=== PATIENT | female | born 1980 | race Two or more races ===

== ENCOUNTER 2025-02-28 22:32 | Emergency (ER) | payer MEDICAID, SELFPAY ==
[2025-02-28 22:34] VITALS: BMI 39.6
[2025-02-28 23:09] VITALS: BP 144/92; PULSE 102; RESP 20; TEMP 36.4; O2SAT 96
--- NOTE | 2025-02-28 23:19 | PD.EDRME ---
Rapid Medical Screening Exam RME Arrival date/time: 02/28/25 22:32 Chief Complaint: Abdominal Pain Time Seen by Provider: 02/28/25 22:35 Vital signs: Vital Signs Temperature 97.5 F 02/28/25 23:09 Pulse Rate 102 H 02/28/25 23:09 Respiratory Rate 20 02/28/25 23:09 Blood Pressure 144/92 H 02/28/25 23:09 Pulse Oximetry (%) 96 02/28/25 23:09 Oxygen Delivery Method Room Air 02/28/25 23:09 E Narrative: Epigastric/RUQ pain, nausea and vomiting since Sunday. Went to outside ED on Sunday, diagnosed with gallstones. Pain has not improved with T3
[2025-02-28 23:30] LABS: Basophils # (Auto) 0.1 Thou/mm3 (0.0-0.2); Basophils % (Auto) 1 % (0-2.5); Eosinophils # (Auto) 0.1 Thou/mm3 (0.0-0.5); Eosinophils % (Auto) 1 % (0-10); Hemoglobin 13.5 g/dL (12.0-16.0); Immature Granulocytes % (Auto) 0 % (0-0); Immature Granulocytes Auto 0.03 Thou/mm3 (0.00-0.00); Lymphocytes # (Auto) 2.7 Thou/mm3 (1.0-4.8); Lymphocytes % (Auto) 24 % (10-50); Mean Corpuscular HGB Conc 32.9 g/dl (31.0-37.0); Mean Corpuscular Hemoglobin 27.4 pg (25.0-35.0); Mean Corpuscular Volume 83 fL (80-100); Monocytes # (Auto) 0.7 Thou/mm3 (0.0-0.8); Monocytes % (Auto) 7 % (0-12); Neutrophils # (Auto) 7.4 Thou/mm3 (1.8-7.7); Neutrophils % (Auto) 67 % (37-80); Nucleated Red Blood Cell % 0 /100 WBC (0); Platelet Count 339 Thou/mm3 (140-440); RDW Standard Deviation 46.1 fL (36.4-46.3); Red Blood Count 4.92 Miln/mm3 (4.00-5.20)
[2025-02-28] MEDS: HYDROcodone/APAP 5/325 TABLET 1 TAB PO (23:35)
[2025-02-28] MEDS: ONDANSETRON ODT 4 MG TABRAP PO (23:35)
[2025-02-28] MEDS: KETOROLAC INJ 60 MG/2 ML VIAL 30 MG IM (23:36)
[2025-02-28 23:42] LABS: Collection Type, Urine Clean Catch
[2025-03-01] VITALS (15 sets, daily range): BP systolic 112–157; BP diastolic 75–97; PULSE 63–91; RESP 14–23; TEMP 36.5–37.2; O2SAT 95–98; BMI 29.4
[2025-03-01 00:10] LABS: Bacteria,Urine 4+; Bilirubin,Urine 2+ (Negative); Blood,Urine Trace (Negative); Clarity,Urine Turbid (Clear/Hazy); Color,Urine Drk-Yellow (Lt Yel-Yel); Glucose, Urine Negative (Negative); Ketones,Urine 3+ (Negative); Leukocyte Esterase,Urine Positive (Negative); Nitrite,Urine Negative (Negative); Protein,Urine Negative (Neg - Trace); RBC,Urine 20 /hpf (0-3); Specific Gravity,Urine 1.016 (1.001-1.035); Squamous Epithelial Cell,Urine 5 /hpf (0-5); Urobilinogen,Urine Negative mg/dL (0.0-1.0); WBC,Urine 36 /hpf (0-5)
[2025-03-01 00:11] LABS: HCG Qualitative,Urine Negative
[2025-03-01 00:22] LABS: Alanine Aminotransferase 282 U/L (10-49); Albumin, Serum 4.6 gm/dL (3.5-5.0); Albumin/Globulin Ratio 1.3 (1.2-2.2); Alkaline Phosphatase 375 U/L (46-116); Anion Gap 11 (7-16); Aspartate Amino Transferase 145 U/L (0-34); BUN/Creatinine Ratio 10 Ratio (12-20); Bilirubin,Total 5.5 mg/dL (0.3-1.2); Blood Urea Nitrogen 7 mg/dL (9-23); Calcium 8.8 mg/dL (8.3-10.6); Calcium (Corrected) 8.8 mg/dL (8.5-10.1); Carbon Dioxide 22.7 mMol/L (20.0-31.0); Chloride 105 mMol/L (98-107); Creatinine (Component) 0.7 mg/dL (0.6-1.3); Estimated Creatinine Clearance 108.1 mL/min (>60); Globulin 3.6 gm/dL (2.3-3.5); Glucose 105 mg/dL (74-106); Lipase 50 U/L (12-53); Osmolality,Calculated 275 (275-295); Potassium 3.8 mMol/L (3.4-5.1); Sodium 139 mMol/L (136-145); Total Protein 8.2 gm/dL (5.7-8.2); eGFR > 60 See Note
--- NOTE | 2025-03-01 00:40 | XR_ITS ---
Examination: Abdomen sonogram, Limited Date and time of exam: March 01, 2025 0110 hours INDICATIONS: Right upper abdominal pain beginning 5 days ago Technique: Real-time wolff scale transabdominal sonographic images of the upper abdomen obtained. Findings: Mildly distended gallbladder 4 mm stone in the gallbladder neck Gallbladder wall is thickened, I measure up to 4.6 mm Common bile duct 0.4 cm Pancreatic head 3.3 cm Liver 13.3 cm possible mild intrahepatic biliary duct dilatation Normal hepatopedal portal venous flow Patent IVC IMPRESSION: Suspicious for calculus cholecystitis, consider HIDA scan or MRCP follow-up
--- NOTE | 2025-03-01 02:39 | PRELIM_ITS ---
Right upper quadrant abdominal ultrasound with Limited Doppler. March 01, 2025 at 0110 hours Clinical history: RUQ pain. hx gallstones. T-bili 5.5 No prior study is available for comparison. Findings: The liver demonstrates heterogeneous echotexture. There is mild intrahepatic biliary ductal dilatation. The main portal vein is patent and demonstrates hepatopetal flow. The gallbladder is distended and demonstrates an echogenic structure in the region of gallbladder neck, which may represent a calculus. The gallbladder wall is thickened measuring 3.5 mm. No evidence of pericholecystic fluid. Sonographic Waddell sign is positive as per the technologist's note. The common bile duct is normal in caliber at 4.2 mm. The pancreas is unremarkable to the extent visualized. The visualized inferior vena cava is patent. Impression: Findings likely represents acute calculous cholecystitis. Mild intrahepatic biliary ductal dilatation. Heterogeneous echotexture of the liver, which may be related to hepatic parenchymal disease. Report Electronically Signed By: Guilherme Kc 03/01/2025 2:38:50 AM [EST]
--- NOTE | 2025-03-01 03:34 | EKG_ITS ---
[facility] Test Date: 2025-03-01 Pat Name: GABBY STEVENS Department: Room: - Gender: Female Administrator Social Welfare: : 1980 Requested By: Oumar Singer Order Number: [id number] Reading MD: Oumar Singer Measurements Intervals [place] Rate: 73 P: -19 MS: 141 QRS: -16 QRSD: 80 T: -16 QT: 382 QTc: 422 Interpretive Statements SINUS RHYTHM WITH SINUS ARRHYTHMIA VOLTAGE CRITERIA FOR LVH [MEETS CRITERIA IN ONE OF: R(aVL), S(V1), R(V5), R(V5/V6)+S(V1)] POSSIBLE ANTERIOR MYOCARDIAL INFARCTION , OF INDETERMINATE AGE [30 ms Q WAVE IN V3/V4, OR R < 0.2 mV IN V4] No previous ECG available for comparison /store/S0/[id number].pdf
--- NOTE | 2025-03-01 03:59 | EDNOTE_ITS ---
ED Abdominal Pain RME/HPI General Chief Complaint: Abdominal Pain Stated complaint: ABD PAIN Time seen by provider: 02/28/25 22:35 Arrival date/time: 02/28/25 22:32 RME / HPI RME / HPI narrative: Epigastric/RUQ pain, nausea and vomiting since Sunday. Went to outside ED on Sunday, diagnosed with gallstones. Pain has not improved with T3 ----- Dr. Sin?s Main ED Evaluation: 44yo female with no significant past medical history presents to the ED for a chief complaint of epigastric pain that radiates to her RUQ. Patient states she was seen at an ED in [place] on Sunday (02/24/25), reporting she was diagnosed with gallstones, and was discharged with Tylenol with Codeine. Patient states her abdominal pain has not improved with the medication at home and continues to have N/V, so she came in for further evaluation. Patient currently rates her pain a 6 out of 10 in severity. Patient denies any fever, chills or any other associated symptoms. She is not on any daily medications. NKA. Related Data Allergies Allergy/AdvReac Type Severity Reaction Status Date / Time No Known Allergies Allergy Verified 02/28/25 22:33 Review of Systems Review of Systems Systems Reviewed: All systems reviewed, normal except as documented Past Medical History Social History SMOKING STATUS: Never smoker ED Exam Narrative Physical exam: GENERAL APPEARANCE: alert and oriented x 4, well-developed, well-nourished, no acute distress VITALS: All vitals were reviewed and the pulse ox is 96% on room air, which is normal according to my interpretation. HEENT: Normocephalic, atraumatic; pupils equal, round, reactive to light; EOMI; moderate scleral icterus; mucous membranes pink, moist; oropharynx clear NECK: Supple LUNGS: CTABL; no wheezes, no rales, no rhonchi HEART: Regular rate, regular rhythm; normal S1, S2; no murmurs ABDOMEN: non distended; soft, [id number] RUQ and epigastric tenderness with guarding, positive Waddell sign, no rigidity, no RUQ tenderness to even deep palpation BACK: no CVA tenderness EXTREMITIES: atraumatic; no edema NEUROLOGIC: awake; alert and oriented x4; cranial nerves II-XII grossly intact; no focal sensory or motor deficits PSYCHIATRIC: appropriate mood and affect SKIN: warm, dry, mild jaundice; no rashes Course Quality Measures none Orders Category Date Time Status [employer] STAT Care 03/01/25 03:35 Active Continuous Pulse Oximetry STAT Care 03/01/25 03:35 Active EKG (ED ONLY) *Do not use* NOW Care 03/01/25 03:35 Completed Insert IV STAT Care 03/01/25 03:34 Active NPO STAT Care 03/01/25 03:34 Active EKG (ED Only) Stat Exams 03/01/25 03:34 Ordered MR MRCP Stat Exams 03/01/25 Stop Req US gall bladder Stat Exams 03/01/25 00:40 Taken XR chest 1V portable Stat Exams 03/01/25 04:00 Taken Blood Culture (Lab) Stat Lab 03/01/25 03:36 Ordered CBC Stat Lab 02/28/25 23:25 Completed CMP [Comprehensive Metabolic Panel] Stat Lab 02/28/25 23:25 Completed HCG Qualitative,Urine Stat Lab 02/28/25 23:33 Completed Lactate (Lactic Acid) Stat Lab 03/01/25 04:10 Completed Lipase Stat Lab 02/28/25 23:25 Completed Magnesium Stat Lab 03/01/25 04:10 Received Partial Thromboplastin Time Stat Lab 03/01/25 04:10 Received Procalcitonin Stat Lab 03/01/25 04:10 Received Prothrombin Time with INR Stat Lab 03/01/25 04:10 Received UA [Urinalysis] Stat Lab 02/28/25 23:33 Completed HYDROcodone*/APAP 5/325 [[place] 5/325] Med 02/28/25 23:19 Discontinued 1 tab PO X1 ONE HYDROmorphone INJ [Dilaudid Inj] Med 03/01/25 04:00 Active 0.5 mg IVP Q30MIN PRN Ketorolac Inj [Toradol Inj] Med 02/28/25 23:19 Discontinued 30 mg IM X1 ONE Ondansetron Odt [Zofran Odt] Med 02/28/25 23:19 Discontinued 4 mg PO X1 ONE Piper/Tazo Inj [Zosyn Inj] 4.5 gm Med 03/01/25 03:36 Discontinued Sodium Chloride 0.9% (Pop) [NS 0.9% mini bag] 100 ml IV X1 Sodium Chloride 0.9% 1000 ml [Ns] 1,000 ml Med 03/01/25 03:34 Discontinued IV 999 mls/hr Vital Signs Vital signs: Vital Signs Temperature 97.5 F 02/28/25 23:09 Pulse Rate 102 H 02/28/25 23:09 Respiratory Rate 20 02/28/25 23:09 Blood Pressure 144/92 H 02/28/25 23:09 Pulse Oximetry (%) 96 02/28/25 23:09 Oxygen Delivery Method Room Air 02/28/25 23:09 Abdominal Pain MDM MDM Narrative MDM Narrative:: Scribe Attestation: 03/01/25 - I, Marci Singh am scribing for and in the presence of Dr. Sin. We do not have MRI available at our facility on Sundays. Will need to transfer the patient for MRCP. 0600: Care signed out to Dr. Sandoval (emergency physician). Past medical, surgical, social and family history reviewed. Vitals and home medications reviewed. Results and treatment plan discussed. They will assume the care of the patient at this time and will follow the patient, pending transfer for MRCP. Patient data [facility] records reviewed:: [facility] previous records (Per chart review, patient has no previous ED visits or admissions to this facility.) Clinical information provided by:: patient Social determinants that could affect healthcare access:: none Patient has the following chronic illnesses:: none How is presenting disease/condition affected by chronic disease/condition?: no chronic disease Evaluation data The following diagnostics were reviewed and interpreted by me:: lab results, radiology exam(s) and EKG tracing(s) Lab and/or radiology exams considered but not ordered:: none Interpretation Summary: CBC is normal, Total Bilirubin is elevated at 5.5, LFTs are elevated, Lipase is normal, UA is positive for a UTI, HCG is negative, according to my interpretation. EKG done at 0426, NSR, rate of 73, left axis deviation, no ectopy, T wave inversion in lead III and avL, no STEMI, according to my interpretation. ------- Telerad Preliminary Report Draft Patient: GABBY STEVENS. Record#: [id number] Birthdate: 1980 Age/Sex: 44 / F Location: [facility] Attending Dr: Ordering Physician: Date of Service: Procedure(s): Accession Number(s): cc: ~ Right upper quadrant abdominal ultrasound with Limited Doppler. March 01, 2025 at 0110 hours Clinical history: RUQ pain. hx gallstones. T-bili 5.5 No prior study is available for comparison. Findings: The liver demonstrates heterogeneous echotexture. There is mild intrahepatic biliary ductal dilatation. The main portal vein is patent and demonstrates hepatopetal flow. The gallbladder is distended and demonstrates an echogenic structure in the region of gallbladder neck, which may represent a calculus. The gallbladder wall is thickened measuring 3.5 mm. No evidence of pericholecystic fluid. Sonographic Waddell sign is positive as per the technologist's note. The common bile duct is normal in caliber at 4.2 mm. The pancreas is unremarkable to the extent visualized. The visualized inferior vena cava is patent. Impression: Findings likely represents acute calculous cholecystitis. Mild intrahepatic biliary ductal dilatation. Heterogeneous echotexture of the liver, which may be related to hepatic parenchymal disease. Report Electronically Signed By: Guilherme Kc 03/01/2025 2:38:50 AM Medications / Prescriptions Medications or Prescriptions considered but not ordered:: none Medication administrations:: Medication Administration History Hydromorphone HCl (Hydromorphone Inj 2 Mg/Ml Vial) 0.5 mg IVP Q30MIN PRN PRN Reason: PAIN Stop: 03/06/25 03:59 Last Admin: 03/01/25 05:11 Dose: 0.5 mg Documented By: CG Discontinued Medications Hydrocodone Bitart/Acetaminophen (Hydrocodone/Apap 5/325 Tablet) 1 tab PO X1 ONE Stop: 02/28/25 23:20 Last Admin: 02/28/25 23:35 Dose: 1 tab Documented By: Sodium Chloride (Ns) 1,000 mls @ 999 mls/hr IV .Q1H1M ONE Stop: 03/01/25 04:34 Last Admin: 03/01/25 05:10 Dose: 999 mls/hr Documented By: CG Piperacillin Sod/Tazobactam (Sod 4.5 gm/ Sodium Chloride) 100 mls @ 200 mls/hr IV X1 ONE Stop: 03/01/25 04:05 Last Admin: 03/01/25 05:12 Dose: 200 mls/hr Documented By: AUGUSTUS Ketorolac Tromethamine (Ketorolac Inj 60 Mg/2 Ml Vial) 30 mg IM X1 ONE Stop: 02/28/25 23:20 Last Admin: 02/28/25 23:36 Dose: 30 mg Documented By: Ondansetron HCl (Ondansetron Odt 4 Mg Tabrap) 4 mg PO X1 ONE; Protocol Stop: 02/28/25 23:20 Last Admin: 02/28/25 23:35 Dose: 4 mg Documented By: see above Consultations Consultation(s) initiated? (list below): No Diagnosis Differential diagnosis abdominal pain: diverticulitis, pancreatitis and other (cholelithiasis, choledocholithiasis, cholecystitis) Most likely diagnosis given after review of the tests above:: acute calculous cholecystitis Admission Indicated Admission indicated?: not indicated Admission Request Was there a request for admission?: No Disposition Plan Disposition Plan: other (specify) (Signed out to Dr. Sandoval at 0600 pending transfer for [facility].) Discharge Plan Prescriptions/Referrals Referrals: No Primary/Family,Physician [Primary Care Provider] - In 1 week Problem List Clinical Impression: Acute calculous cholecystitis Patient/Caregiver Discharge Instructions Print Language: Syriac
--- NOTE | 2025-03-01 04:00 | PC.NURSE ---
Division Director assumes care of patient at this time, pt present to ER with c/o epigastric pain that radiates into right side/back for 1 wk. Pt denies any trauma, S.O.B. Pt rates pain 03/24
--- NOTE | 2025-03-01 04:00 | XR_ITS ---
Examination: AP chest single view TECHNIQUE: Portable AP sitting chest single view Date and time: February 19, 2025 0436 hours INDICATIONS: Upper abdominal pain today. FINDINGS: Minimal prominence left ventricle Mild elevation right hemidiaphragm. No pneumonia. No free air IMPRESSION: No pneumonia. No free air
[2025-03-01] MEDS: SODIUM CHLORIDE 0.9% 1000 ML 1,000 ML 999 ML IV (05:10)
[2025-03-01] MEDS: HYDROmorphone INJ 2 MG/ML VIAL 0.5 MG IVP (05:11)
[2025-03-01] MEDS: PIPER/TAZO INJ 4.5 GM in SODIUM CHLORIDE 0.9% (POP) 100 ML IV (05:12)
[2025-03-01 05:45] LABS: Partial Thromboplastin Time 28.6 Seconds (22.0-36.0); Prothrombin Time 10.8 Seconds (9.0-12.2)
[2025-03-01 05:54] LABS: Procalcitonin 0.25 ng/ml (0.0-0.49)
--- NOTE | 2025-03-01 05:59 | PC.NURSE ---
Packet faxed for initiation of transfer for MRCP. Transfer Nurse for [facility] stated they do have MRCP but inquired if ERCP was needed as well, they would not have those capabilities. They did state that if we were unable to transfer pt then they would be able to at least perform MRCP. Will fax packet to [facility] to initiate transfer. [place] Sin made aware.
--- NOTE | 2025-03-01 06:54 | PD.EDADDENDU ---
Emergency Room Addendum <Maryellen Cabrera - Last Filed: 03/01/25 17:28> Addendum Narrative: 0600: Care assumed from Dr. Sin, the previous shift emergency physician. Past medical, surgical, social and family history reviewed. Vitals and home medications reviewed. I will assume the care of the patient at this time, pending transfer for MRCP. Please refer to the emergency department record for history and examination from initial visit.?The following addendum documentation note is intended to reflect any pending information, findings, or radiology results not included in the patient?s initial chart. Nursing notes reviewed by me. Vital signs reviewed by me. [facility] medical records reviewed by me. No previous ED visits for review. Per Dr. Sin's note, the patient was recently diagnosed with gallstones in [place] on 02/24/2025 and discharged home with Tylenol #3. 0657: I spoke with transfer nurse at [facility]. Discussed patient?s HPI, PMHx, lab and radiology results. States at this time they are at capacity. 0900: reviewed case with patient and electric transfer operator bedside and [place] and would prefer to increase radius of trans southward towards [place] and not north 1620: I spoke with GI at [facility] in [place]. Discussed patients PMHx, HPI, ED course, exam findings, labs, and radiology results. Advised repeating labs and if t.bili remains elevated to transfer. However, if t.bili is down trending it is most likely a passed stone. Patient has been accepted at [facility] by Curtis Murphy. <Sonu Sandoval MD - Last Filed: 03/02/25 06:32> Addendum Narrative: 0600: Care assumed from Dr. Sin, the previous shift emergency physician. Past medical, surgical, social and family history reviewed. Vitals and home medications reviewed. I will assume the care of the patient at this time, pending transfer for MRCP. Please refer to the emergency department record for history and examination from initial visit.?The following addendum documentation note is intended to reflect any pending information, findings, or radiology results not included in the patient?s initial chart. Nursing notes reviewed by me. Vital signs reviewed by me. [facility] medical records reviewed by me. No previous ED visits for review. Per Dr. Sin's note, the patient was recently diagnosed with gallstones in [place] on 02/24/2025 and discharged home with Tylenol #3. 0657: I spoke with transfer nurse at [facility]. Discussed patient?s HPI, PMHx, lab and radiology results. States at this time they are at capacity. 0900: reviewed case with patient and electric transfer operator bedside and [place] is from [place] and would prefer to increase radius of trans southward towards [place] and not north 1620: I spoke with hospitalist, Dr. Cabrera who reviewed case with their GI at [facility] in [place]. Discussed patients PMHx, HPI, ED course, exam findings, labs, and radiology results. Advised repeating labs and if t.bili remains elevated to transfer. However, if t.bili is down trending it is most likely a passed stone. Patient has been accepted at [facility] by Curtis Murphy.
[2025-03-01] MEDS: SODIUM CHLORIDE 0.9% 1000 ML 1,000 ML 125 ML IV (06:55)
--- NOTE | 2025-03-01 07:06 | PC.NURSE ---
[facility] stated they are at capacity at the moment. will relay that to the transfer nurse and the Charge Nurse.
--- NOTE | 2025-03-01 07:08 | PC.CC ---
Addendum entered by Fransisco Wisdom RN 03/01/25 17:27: 1701 sent paperwork to [facility] through [employer]. Called [facility], spoke to Kristin and set up the transport. The pickup driver time is 1929. Addendum entered by Fransisco Wisdom RN 03/01/25 17:04: 1651 received call from Bassam at [facility]. She stated pt is accepted at [facility]. Room 633. Accepted by Curtis Murphy. Number for report is [phone]. Addendum entered by Fransisco Wisdom RN 03/01/25 16:28: 1627 received call from ER that pt total bili is back and it's 5.4, I called and informed Ariel at [facility]. Addendum entered by Fransisco Wisdom RN 03/01/25 16:25: 1551 received call from Ariel at [facility] wants to speak to Dr. Sandoval to connect his provider Dr. Lujan on the line for peer to peer. Conference call connected. Dr. Lujan wants repeat total bili lab. Once I have the results I will call Ariel back. 1438 Called and informed Ariel at [facility]. 1434 called ED charge nurse, she checked with the pt and pt is agreeable to got to [facility]. 1431 received call from Ariel at [facility]. He stated he has a bed at [facility]. He wants me to find out if pt is OK with it. 1107 received call from [facility] that they don't have a bed at [place]. Therefore, declining the transfer. I asked Ariel if he can try [place] area because [place] is from [place]. Ariel stated he will find out and call me back. Addendum entered by Fransisco Wisdom RN 03/01/25 16:08: 1021 Received call from Ariel at [facility] and gave clinicals. 936 Called [facility], spoke to Derrick and initiated the transfer. He stated the nurse will call me for clinicals. [address] Sandovla and updated about the outcome. Dr. Sandoval stated to continue to look for transferring the pt. 930 received call from Nickolas at [facility] that she presented the case to her GI Dr. Lombardo and he stated that pt needs lap [facility]ian[place] and there is no need for ERCP. Therefore, transfer request is declined. 0900 called [facility], spoke to Nickolas and initiated the transfer. Nickolas wants to speak with Dr. Sandoval. Conference call connected. [address] Sandoval and he stated the pt is from [facility]. He doesn't want me to try [facility]. Addendum entered by Fransisco Wisdom RN 03/01/25 07:58: 0758 images pushed over to [facility]. Addendum entered by Fransisco Wisdom RN 03/01/25 07:54: 0754 transfer packet printed, CD burned. Original Note: 0752 clinicals sent to [facility], [facility], [facility]. 0708 spoke to ED charge nurse, Pt needs to be transferred for suspicious for calculus cholecystitis needs MRCP. US shows Mildly distended gallbladder, 4 mm stone in the gallbladder neck. Charge nurse informed me that [facility] declined the pt.
[2025-03-01 07:27] LABS: Acetaminophen 6.3 mcg/mL (10.0-20.0)
[2025-03-01] MEDS: MORPHINE SULF INJ 10 MG/ML VIAL 6 MG IVP (11:16)
[2025-03-01 17:03] LABS: Alanine Aminotransferase 241 U/L (10-49); Albumin, Serum 3.8 gm/dL (3.5-5.0); Albumin/Globulin Ratio 1.2 (1.2-2.2); Alkaline Phosphatase 335 U/L (46-116); Anion Gap 8 (7-16); Aspartate Amino Transferase 125 U/L (0-34); BUN/Creatinine Ratio 13 Ratio (12-20); Bilirubin,Total 5.3 mg/dL (0.3-1.2); Blood Urea Nitrogen 8 mg/dL (9-23); Calcium (Corrected) 8.2 mg/dL (8.5-10.1); Carbon Dioxide 22.6 mMol/L (20.0-31.0); Chloride 109 mMol/L (98-107); Creatinine (Component) 0.6 mg/dL (0.6-1.3); Estimated Creatinine Clearance 126.1 mL/min (>60); Globulin 3.2 gm/dL (2.3-3.5); Glucose 82 mg/dL (74-106); Lipase 35 U/L (12-53); Osmolality,Calculated 276 (275-295); Potassium 3.8 mMol/L (3.4-5.1); Sodium 140 mMol/L (136-145); eGFR > 60 See Note
[2025-03-01 17:05] LABS: Basophils # (Auto) 0.1 Thou/mm3 (0.0-0.2); Basophils % (Auto) 1 % (0-2.5); Eosinophils # (Auto) 0.2 Thou/mm3 (0.0-0.5); Eosinophils % (Auto) 2 % (0-10); Hematocrit 37.2 % (36.0-46.0); Hemoglobin 12.2 g/dL (12.0-16.0); Immature Granulocytes % (Auto) 0 % (0-0); Immature Granulocytes Auto 0.04 Thou/mm3 (0.00-0.00); Lymphocytes # (Auto) 2.9 Thou/mm3 (1.0-4.8); Lymphocytes % (Auto) 29 % (10-50); Mean Corpuscular HGB Conc 32.8 g/dl (31.0-37.0); Mean Corpuscular Hemoglobin 27.7 pg (25.0-35.0); Mean Corpuscular Volume 85 fL (80-100); Monocytes # (Auto) 0.8 Thou/mm3 (0.0-0.8); Monocytes % (Auto) 8 % (0-12); Neutrophils % (Auto) 60 % (37-80); Nucleated Red Blood Cell % 0 /100 WBC (0); Platelet Count 308 Thou/mm3 (140-440); RDW Standard Deviation 47.6 fL (36.4-46.3); White Blood Count 9.9 Thou/mm3 (3.6-11.0)
--- NOTE | 2025-03-01 18:32 | PC.CC ---
Attempted to call report to [facility]. Report refused at this time.
== END 2025-03-01 19:40 | disposition short-term general hospital (02) ==
PROVIDERS: Emergency Medicine; Physician Assistant; Emergency Provider Emergency Medicine
DX: K80.00 Calculus of gallbladder with acute cholecystitis without obstruction (principal)
CPT/HCPCS: 36415; 71045; 76705; 80053; 80329; 81001; 81025; 83605; 83690; 83735; 84145; 85025; 85610; 85730; 87040; 93005; 96361; 96365; 96372; 96375; 99285; J1171; J1885; J2270; J2543; J7030; Q0162; A9270; G0480